=== PATIENT | male | born 1995 | race Caucasian/White ===

== ENCOUNTER 2016-09-19 09:19 | Outpatient (CLI) ==
[2013-01-23 11:44] VITALS: TEMP 97.8
[2014-12-10 07:37] VITALS: BMI 16.9
--- NOTE | 2016-09-19 10:38 | MRI ---
EXAM: MRI brain without IV contrast. DATE: 19 September 2016. HISTORY: Headaches. TECHNIQUE: Sagittal T1W, axial T2W, axial FLAIR, axial T1W, axial DWI, and coronal T2W GRE sequence s of the brain were obtained using 1.2 capsule there is. The mastoid air Padmini magnet. No IV contr ast. COMPARISON: MRI brain [address] head 10 December 2011. FINDINGS: The the overall appearance of both lateral ventricles is similar to previous MRI. Third ventricle is mildly prominent in diameter. Posterior fossa posterior midline T2W bright, T1W dark r egion measuring 14 x 25 x 44 mm is unchanged from previous exam and may represent normal variation r ather than arachnoid cyst. The genu of the corpus callosum appears intact over a 12 mm length. The rostrum, body, and splenium corpus callosum are diminished in size, with broad area of the corpus c allosum body and splenium absent. No midline shift, mass effect or extra-axial hemorrhage is appare nt. No acute infarct, axial hemorrhage or neoplasm is identified. The avila - white matter differen tiation is normal. The 7th/8th cranial nerve complexes, cerebellopontine angles, brainstem, and vis ible cervical spinal cord are normal. There is 2.7 mm right cerebellar tonsillar ectopia. The pitu itary gland is normal in size and signal. Flow voids are present in the major intracranial arteries and in the dural venous sinuses. No aneurysm, AVM or dural venous sinus thrombosis is apparent. N o orbit abnormality is identified. The mastoid air cells are unremarkable. There is minor mucosal thickening in the maxillary sinuses and scattered ethmoid air cells. Bilateral middle turbinate con farrukh bullosa are observed. Small lymph nodes are present in the upper neck bilaterally. Minor adeno id tissue prominence appears benign. No neck mass or lymphadenopathy is detected. No calvarial jerry plasm or acute fracture is evident. IMPRESSIONS: 1. No acute infarct, hemorrhage, mass or hydrocephalus. 2. Low-lying right cerebellar tonsil. No Chiari 1 malformation. 3. 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 4. Minor adenoid hypertrophy and small cervical lymph nodes - correlate for recent URI. 5. Minor ethmoid and bilateral maxillary sinus disease.
== END 2016-09-19 09:20 | disposition home or self-care (01) ==
LOC: RAD 09:19
PROVIDERS: ATTEND Family Medicine
DX: G44.89 Other headache syndrome (principal)